=== PATIENT | female | born 1955 | race Caucasian/White ===

== ENCOUNTER 2021-09-03 21:15 | Emergency (ER) | payer MEDICARE, OTHER ==
[2021-09-03] MEDS ORDERED: TETANUS/DIPHTHERIA/PERTUSSIS 0.5 ML SYRINGE IM ONE (21:27)
--- OUTSIDE RECORDS SUMMARY | 2021-09-03 21:31 | EXTERNAL MEDICAL SUMMARY RPT | Continuity of Care Document ---
:1955 Author Organization [facility] Address [address] [place] [address] Phone Care Team Providers Name Role Phone Camejo Unavailable Unavailable Allergies No information. Encounters No information. Medications date description facility 20210822 Losartan Potassium 50 MG Oral Tablet [facility] 20210822 Estradiol 0.01 MG Vaginal Tablet [facility] 20210822 Rosuvastatin calcium [address] [facility] 20210822 Cholecalciferol [address] [facility] 20210822 Naproxen 500 MG Oral Tablet [facility] 20210822 Atenolol 50 MG Oral Tablet [facility] 20210822 Acyclovir 800 MG Oral Tablet [facility] Problems Procedures date description facility [id number] General Physician [facility] 20210822 Finding [facility] 20210822 Diagnosis [facility] Results No information. Vital Signs date measurement value source 20210822 weight_standard 103.31 lb 20210822 weight_metric 46.86 kg 20210822 height_standard 62 in 20210822 height_metric 157.48 cm 20210822 heart_rate 59 /min 20210822 BP_systolic 148 mm[Hg] 20210822 BP_diastolic 94 mm[Hg] 20210822 BMI 18.8 kg/m2
[2021-09-03] MEDS ORDERED: BUPIVACAINE 0.25% PF 30 ML VIAL SUBQ STA (21:37)
[2021-09-03] MEDS ORDERED: oxyCODONE 5 MG TABLET PO STA (22:01)
[2021-09-03] MEDS ORDERED: LIDOCAINE 1% 2 ML VIAL SUBQ STA (22:04)
[2021-09-03] MEDS ORDERED: ACETAMINOPHEN 500 MG TABLET PO STA (22:08)
[2021-09-03] MEDS ORDERED: LIDOCAINE-MPF 2% 5 ML VIAL ONE (22:17)
[2021-09-03] MEDS ORDERED: oxyCODONE/ACET 5/325 Prepack 4 PO STA (22:51)
[2021-09-03] MEDS ORDERED: cephALEXin 250 MG CAPSULE PO STA (22:51)
--- NOTE | 2021-09-03 23:14 | ED Physician Documentation ---
PD HPI UPPER EXT INJURY - Stated complaint Stated Complaint: L FINGER INJ - Chief complaint Chief Complaint: Laceration - Additonal information Additional information: Patient is a 66-year-old female with a history of stroke, on Plavix presenting for evaluation of injury to her left ring finger that occurred at 8:45 PM. Patient was closing a heavy metal barn door when her left ring finger became smashed between the door and a metal gate. She is unsure of her last tetanus. She denies injury elsewhere. Pain is sharp and throbbing. It is worse with movement. She was able to control the bleeding with a dressing. Review of Systems Constitutional: denies: Fever Nose: denies: Congestion Cardiac: denies: Chest pain / pressure Respiratory: denies: Dyspnea GI: denies: Abdominal Pain Skin: reports: Laceration (s) Musculoskeletal: denies: Back pain Neurologic: denies: Head injury PD PAST MEDICAL HISTORY - Present Medications Home Medications: Ambulatory Orders Medication Instructions Recorded Confirmed Atenolol [Tenormin] 50 mg PO DAILY 09/03/21 09/03/21 Clopidogrel [Plavix] 75 mg PO DAILY 09/03/21 09/03/21 Losartan [Cozaar] 50 mg PO DAILY 09/03/21 09/03/21 Oxycodone HCl/Acetaminophen 1 each PO Q6H PRN #10 tablet 09/03/21 [Percocet 5-325 mg Tablet] Rosuvastatin Calcium [Crestor] 10 mg PO DAILY 09/03/21 09/03/21 Ubidecarenone/Vit E Acet [Co Q-10 1 cap PO DAILY 09/03/21 09/03/21 100 mg Softgel] cephALEXin [Keflex] 500 mg PO Q6H 5 Days #20 cap 09/03/21 - Allergies Allergies/Adverse Reactions: Allergies Allergy/AdvReac Type Severity Reaction Status Date / Time No Known Drug Allergies Allergy Verified 09/03/21 21:23 PD ED PE NORMAL - General General: Alert and oriented X 3, No acute distress, Well developed/nourished - HEENT HEENT: Atraumatic, Moist mucous membranes - Respiratory Respiratory: No respiratory distress - Extremities Extremities: Other (2 cm laceration to medial left ring finger at distal portion, nail intact, able to fully flex and extend at DIP, finger pad is pink and well perfused with brisk cap refill ). No: No deformity - Neuro Neuro: No motor deficit. No: No sensory deficit (small area of Decreased sensation alongLaceration but overall sensation grossly intact to fingertip pad) PD ED PE EXPANDED - Extremities LUIS UE/Hands Visual: 1 - laceration 2 - laceration Results - Vitals Vitals: Vital Signs - 24 hr 09/03/21 09/03/21 09/03/21 21:18 21:19 23:18 Temperature 37.0 C Heart Rate 94 64 94 Respiratory 20 16 16 Rate Blood Pressure 180/91 H 163/86 H 148/92 H O2 Saturation 98 99 99 Oxygen O2 Source Room air Procedures - Laceration (location) L ring finger Length in cm: 2 Wound type: Flap Neurovascular status: Sensory intact (Small area of decreased sensation along laceration edge but overall sensation grossly intact), Motor intact, Vascular intact Tendon involvement: Tendon intact Anesthesia: Lidocaine 2% Wound preparation: Hibiclens, Irrigated copiously NS Skin layer closure: Interrupted, Sutures - enter # (8) Other: Patient tolerated well, No complications, Neurovascular intact, Dressing applied, Tetanus booster given PD MEDICAL DECISION MAKING - ED course Complexity details: reviewed results, d/w patient ED course: Patient with injury to left ring finger. Patient had described the injury as degloving upon examination appears to be partial avulsion With no nailbed involvement. Involved area appears to have well-perfused tissue. X-ray was obtained and On my preliminary read I did have concerns for possible tuft fracture. Wound was copiously irrigated. Finger tourniquet was used to create a bloodless field and wound was cleaned and explored.Patient was able to extend and flex at the DIP suggesting that the tendon remains intact. Wound was suturedAnd a finger splint was applied. Due to concerns for possible tuft fracture and area of laceration I did start the patient on p.o. antibiotics. Patient is aware she needs close follow-up with orthopedic surgeon And is aware of return precautions. Departure - Departure Disposition: 01 Home, Self Care Clinical Impression: Open fracture of tuft of distal phalanx of finger Laceration of left ring finger Qualifiers: Encounter type: initial encounter Damage to nail status: without damage Foreign body presence: without foreign body Qualified Code(s): S61.215A - Laceration without foreign body of left ring finger without damage to nail, initial encounter Condition: Stable Instructions: ED Fx Finger Open, ED Laceration Hand Follow-Up: Yannick Brito MD [Provider Admit Priv/Credential] - Prescriptions: cephALEXin [Keflex] 500 mg PO Q6H 5 Days #20 cap Oxycodone HCl/Acetaminophen [Percocet 5-325 mg Tablet] 1 each PO Q6H PRN #10 tablet PRN Reason: pain Comments: Melina - You Were evaluated for an injury to your left ring finger. You have a fracture at the very end of the finger called a distal phalanx fracture or tuft fracture. Because your cut is near the fracture, It could be considered an open fracture. I am going to start you on antibiotics which you should take for the next 5 days to help prevent any infection.We have closed the cut with sutures. You had 8 stitches placed. You need close follow-up with an orthopedic doctor. There is a small area of the skin that had decreased sensation. The tissue is pink and I hope will remain viable. However, you do need a close follow-up with an orthopedic doctor to make sure the cut and that the bone are both healing properly.Please keep the splint on the finger. Please keep the wound clean and dry.You were also given a small amount of pain medication. If you have any worsening symptoms such as bleeding, increased swelling, redness or abnormal drainage, Pain or any other concerns please return to the emergency department. Please call Dr. Brito's office for a close follow up appointment to be seen within the next 3-5 days I have sent prescriptions for an antibiotic and pain medication to the [facility] pharmacy in [place]. I am prescribing a short course of narcotic pain medication for you. These are potentially dangerous and addictive medications that should be used carefully. These medications may constipate you. Take an hyhr-arh-ggsvnbs stool softener (docusate) twice daily with plenty of water while taking these medications. If you go 24 hours without a bowel movement, take [id number] miralax, per package instructions. Do not drink or drive while taking these medications. If you received narcotic or sedating medications while in the emergency department, do not drive for 24 hours. Store this medication in a safe, secure place and out of reach of children. It is a violation of federal law to give or sell this medication to another person or to use in a manner other than prescribed. The ED will not refill narcotic prescriptions, including prescriptions lost or stolen. To dispose of unwanted medications: 1. [facility] at [address] in [place] has a medication drop box. They accept prescription medications (in pill form) Sunday through Sunday 9:00 a.m. to 5:00 p.m. 2. [facility] accepts prescription medications (in pill form only) for disposal year round. Call for more information. 3. Contact the [facility] for the next [facility] sponsored prescription drug collection event. , x7310, or [phone]; Note that many narcotic pain relievers also contain Tylenol/acetaminophen. Please ensure that your total dose of acetaminophen from all sources does not exceed 3 g (3000 mg) per day. Discharge Date/Time: 09/03/21 23:26
[2021-09-03 23:19] VITALS: BP 148/92
== END 2021-09-03 23:26 | disposition home or self-care (01) ==
LOC: ED 21:15
DX: S62.635A Displaced fracture of distal phalanx of left ring finger, initial encounter for closed fracture (principal); W23.0XXA Caught, crushed, jammed, or pinched between moving objects, initial encounter; Z23 Encounter for immunization; Z71.85 Encounter for immunization safety counseling
CPT/HCPCS: 12001; 73140; 90471; 90715; 99282; 99283; A9270

== ENCOUNTER 2022-02-12 15:58 | Outpatient (CLI) | payer MEDICARE, OTHER | END 2022-02-12 15:59 | disposition short-term general hospital (02) | LOC: EMS 15:58 | DX: R19.7 Diarrhea, unspecified (principal); R10.84 Generalized abdominal pain; R19.37 Generalized abdominal rigidity; R63.0 Anorexia; E86.0 Dehydration | CPT/HCPCS: A0425; A0427; A0888 ==